=== PATIENT | female | born 1990 | race Asian ===

== ENCOUNTER 2018-04-18 17:22 | Emergency (ER) | payer OTHER ==
[~2018-04-18] VITALS: Ht 165.1 cm; Wt 43.5 kg
[2018-04-18 17:42] VITALS: Ht 165.1 cm; Wt 43.5 kg
[2018-04-18 19:05] VITALS: BP 106/74
== END 2018-04-18 19:05 | disposition home or self-care (01) ==
LOC: ED 17:22
DX: S42.201A Unspecified fracture of upper end of right humerus, initial encounter for closed fracture (principal); X58.XXXA Exposure to other specified factors, initial encounter; Y93.23 Activity, snow (alpine) (downhill) skiing, snowboarding, sledding, tobogganing and snow tubing; Y92.89 Other specified places as the place of occurrence of the external cause; Y99.8 Other external cause status